=== PATIENT | female | born 1930 | race Two or more races ===

== ENCOUNTER 2017-02-05 14:00 | Outpatient (RCR) | payer OTHER ==
[~2017-02-05 14:00] MED LIST: CENTRUM SILVER1 EAC1 ORAL; DIOVAN160 MG ORAL; SENNA8.6 M2 ORAL; SENNA8.6 M3 PO; SYNTHROID75 MCG ORAL; TENORMIN50 MG ORAL; VICODIN 5-5001 EACH ORAL; VIT. D ORAL; VITAMIN D1000 UNI1 ORAL; blood pressure med ORAL; tylenol PM PO
== END 2017-02-10 | disposition home or self-care (01) ==
LOC: PTY 14:00
DX: M25.551 Pain in right hip (principal); Z88.0 Allergy status to penicillin; Z88.6 Allergy status to analgesic agent; Z88.8 Allergy status to other drugs, medicaments and biological substances; M54.30 Sciatica, unspecified side; M75.50 Bursitis of unspecified shoulder
CPT/HCPCS: 97035; 97163; G0283

== ENCOUNTER 2017-02-11 10:30 | Outpatient (RCR) | payer OTHER | END 2017-03-13 | disposition home or self-care (01) | LOC: PTY 10:30 | DX: M25.551 Pain in right hip (principal); Z88.0 Allergy status to penicillin; Z88.6 Allergy status to analgesic agent; Z88.8 Allergy status to other drugs, medicaments and biological substances; M54.30 Sciatica, unspecified side; M75.50 Bursitis of unspecified shoulder | CPT/HCPCS: 97035; 97110; G0283 ==